=== PATIENT | male | born 1975 | race Caucasian/White ===

== ENCOUNTER 2023-05-20 19:42 | Emergency (ER) | payer BC, SELFPAY ==
[2023-05-20 19:45] VITALS: BP 132/76; PULSE 47; RESP 18; TEMP 36.6; O2SAT 100; BMI 23.3
--- NOTE | 2023-05-20 19:54 | DI.US.S_ITS ---
PROCEDURE: US SCROTUM INDICATIONS: RIGHT TESTICULAR PAIN TECHNIQUE: Real-time scanning was performed of the scrotum and testicles, with image documentation. Color and pulse Doppler interrogation was performed of both testicles. COMPARISON: None. FINDINGS: Right: Testicle measures 3.7 x 2.5 x 3.5 cm and appears homogenous in echotexture. Epididymis is normal in overall size and morphology. There is a small hydrocele. No varicoceles. Overlying scrotal skin is normal in thickness. Left: Testicle measures 3.8 x 2.5 x 3.1 cm and appears homogeneous in echotexture. Epididymis is normal in overall size and morphology. There is a small hydrocele. No varicoceles. Overlying scrotal skin is normal in thickness. Doppler: Color and pulse Doppler demonstrate patent and symmetric arterial flow in both testicles. IMPRESSION: 1. No evidence of testicular torsion. 2. Small bilateral hydroceles. Dictated by: Lalo Dukes M.D. on 05/20/2023 at 22:04 Approved by: Lalo Dukes M.D. on 05/20/2023 at 22:05
--- NOTE | 2023-05-20 23:19 | ED.GENADULT ---
HPI - General Adult General Chief complaint: Urogenital-Male Stated complaint: phys refferal for us of testicles Time Seen by Provider: 05/20/23 19:54 Source: patient Mode of arrival: Ambulatory History of Present Illness HPI narrative: Otherwise healthy 47-year-old gentleman who went for his usual run this morning and by this afternoon was noticing that his right testicle was becoming increasingly tender. [place] with a bit of edema and send him to the emergency department for ultrasound and further evaluation. Patient presents with his has no concerns for sexually transmitted infections has never had similar findings is noting right testicular tenderness and pain, no fevers, no dysuria or difficulty with urinating or with bowel movements. No abdominal pain. No rashes in the inguinal area, Related Data Previous Rx's Medication Instructions Recorded levofloxacin 500 mg tablet 500 mg PO DAILY #10 tabs 05/20/23 Allergies Allergy/AdvReac Type Severity Reaction Status Date / Time No Known Drug Allergies Allergy Verified 05/20/23 19:45 Review of Systems Review of Systems Narrative: Pertinent positive and negative findings as per HPI Patient History Social History Smoking Status: Never smoker Smoking Status: Never smoker Substance Use Type: does not use Exam Initial Vital Signs Initial Vital Signs: Vital Signs Temperature 97.9 F 05/20/23 19:45 Pulse Rate 47 L 05/20/23 19:45 Respiratory Rate 18 05/20/23 19:45 Blood Pressure 132/76 05/20/23 19:45 Pulse Oximetry 100 05/20/23 19:45 Oxygen Delivery Method Room Air 05/20/23 19:45 General: Alert appropriate in no acute distress Respiratory: Able to speak in full sentences, no obvious respiratory distress Skin: No obvious rashes, warm and dry Neurologic: Grossly intact no obvious asymmetries or abnormalities Psych: appropriate insight and affect, cooperative : Right side of his scrotum is somewhat tender, no erythema the epididymis feels slightly full and is the obvious source of his pain Course Orders Ordered: ED Orders 05/20/23 19:54 US scrotum Stat Discontinued Medications Acetaminophen (Acetaminophen 325 Mg Tablet) 325 mg PO NOW ONE Stop: 05/20/23 23:25 Last Admin: 05/20/23 23:35 Dose: 325 mg Documented By: SHARON Ibuprofen (Ibuprofen 400 Mg Tablet) 400 mg PO NOW ONE Stop: 05/20/23 23:25 Last Admin: 05/20/23 23:35 Dose: 400 mg Documented By: SHARON Levofloxacin (Levofloxacin 250 Mg Tablet) 500 mg PO NOW ONE Stop: 05/20/23 23:29 Last Admin: 05/20/23 23:35 Dose: 500 mg Documented By: SHARON Vital Signs Vital signs: Vital Signs - 8 hr 05/20/23 23:28 Pulse Rate 54 L Respiratory Rate 16 Blood Pressure 114/62 Pulse Oximetry 99 Medical Decision Making Lab Data Labs: Urine Dip Bedside Urine Glucose Negative Bedside Urine Bilirubin - Negative Bedside Urine Ketone - Negative Urine Specific [place] 1.015 Bedside Urine Occult Blood - Negative Bedside Urine pH 6 Bedside Urine Protein - Negative Bedside Urine Urobilinogen - Negative Bedside Urine Nitrite - Negative Bedside Urine Leukocytes - Negative Esterase Point of care testing: Urine Dip Bedside Urine Glucose Negative Bedside Urine Bilirubin - Negative Bedside Urine Ketone - Negative Urine Specific [place] 1.015 Bedside Urine Occult Blood - Negative Bedside Urine pH 6 Bedside Urine Protein - Negative Bedside Urine Urobilinogen - Negative Bedside Urine Nitrite - Negative Bedside Urine Leukocytes - Negative Esterase MDM Narrative Medical decision making narrative: CC: Right testicular pain Data collected from: patient, Differential considered: Testicular torsion, epididymitis, sexually transmitted infection, testicular mass Exam documented above, pertinent findings include: Tenderness to palpation along the epididymis with no masses or nodules appreciated Imaging studies independently reviewed: No evidence of torsion, small bilateral hydroceles, testicles and epididymis are felt to be within normal limits Treatments: Oral Levaquin is initiated Discussion: 47-year-old gentleman with acute onset right epididymal tenderness. Most consistent with epididymitis in the absence of testicular torsion, mass, infection, Lori's gangrene or testicular/scrotal trauma. No evidence of urinary tract infection or sexually transmitted infection. We will give him 10 days of Levaquin 500 mg daily and recommended ice rest as well as nonsteroidals. He will follow-up with his primary doctor if symptoms are not improving. He is safe for discharge Discharge Plan Departure Patient Disposition: Home Clinical Impression: Epididymitis Instructions: Epididymitis Activity Restrictions/Additional Instructions: Thank you for coming in today With the swelling and the slight tenderness in the epididymis on the right side, you have epididymitis. This typically treated with 10 days of antibiotics, ibuprofen, Tylenol and you may find that ice and rest are beneficial as well The ultrasound does not show any testicular abnormalities, masses, blood flow abnormalities or other problems that would require surgical intervention or hospitalization. If you find that you are getting worse it would be appropriate to return to the emergency department. If it continues to bother you by next week, you can follow-up with your primary care doctor or with urologist. Prescriptions: New levofloxacin 500 mg tablet 500 mg PO DAILY Qty: 10 0RF Stand Alone Forms: Patient Portal/API
[2023-05-20 23:28] VITALS: BP 114/62; PULSE 54; RESP 16; O2SAT 99
[2023-05-20] MEDS: ACETAMINOPHEN 325 MG TABLET PO (23:35)
[2023-05-20] MEDS: levoFLOXacin 250 MG TABLET 500 MG PO (23:35)
[2023-05-20] MEDS: IBUPROFEN 400 MG TABLET PO (23:35)
== END 2023-05-20 23:40 | disposition home or self-care (01) ==
PROVIDERS: Emergency Provider Emergency Medicine
DX: N45.1 Epididymitis (principal)
CPT/HCPCS: 76870; 81003; 93975; 99283